=== PATIENT | female | born 1960 | race Caucasian/White ===

== ENCOUNTER → 2016-02-14 | Outpatient (CLI) | payer BC ==
[~2016-02-14] MED LIST: ACHYD1T PO; ALPR1T PO; ASPI-892 PO; ATR20T PO; BISO1TAB4 PO; CEPH-38 PO; CYCL10TA9 PO; DCS100C PO; ESTR0.9T PO; ESTR2TAB PO; GBPN300C PO; HYDR-2997 PO; HYDR-757 PO; LEVO75TA57 PO; LEVO88TA26 PO; MELO7.5T PO; NAPR-689 PO; OMEP40CA36 PO; POLY17PO6 PO; PTU50T PO
--- OUTSIDE RECORDS SUMMARY | 2016-02-14 10:25 | XMS REPORT | Continuity of Care Document ---
Author Author [facility] Organization [facility] Address Unknown Phone Unavailable Care Team Providers Care [employer] C[employer] Developer Name Role Phone SUSANA REAVES MD PCP Insurance Providers Payer Name Policy Number Subscriber Name Relationship [facility] [id number] Meagan Christopher S 18 Self / Same As Patient Advance Directives Directive Response Recorded Date/Time Advance Directives No 07/19/15 10:49am Health Care Power of Chief Technologist No 07/19/15 10:49am Organ Donor Yes 07/19/15 10:49am Resuscitation Status Full Code 07/19/15 10:49am Problems No problem information available. Medications Current Home Medications Medication Dose Units Route Directions Days/Qty Instructions Start Date Meloxicam 7.5 Mg 15 Mg Oral Daily 02/11/10 Bisoprolol Fumarate/Hctz 1 Tab 1 Tab Oral Daily 30 02/11/10 Omeprazole 40 Mg 40 Mg Oral Daily 02/11/10 Estradiol 2 Mg 2 Mg Oral Daily 12/22/12 Atorvastatin Calcium 20 Mg 20 Mg Oral Daily 12/22/12 Levothyroxine Sodium 88 Mcg 88 Mcg Oral Daily 11/12/13 Past Home Medications Medication Directions Ordered Status Estrogens,Conjugated 0.9 Mg Tablet, 0.9 Mg Oral Every Other Day 02/11/10 Discontinued Propylthiouracil 50 Mg Tab, 7.5 Mg Oral Daily 02/11/10 Discontinued Aspirin 81 Mg Tabec, 81 Mg Oral Daily 02/11/10 Discontinued Acetaminophen/Hydrocodone Bitart 1 Tab Tablet, 1 Each Oral As Needed Q4-6H as needed 02/14/10 Discontinued Alprazolam 1 Mg Tablet, 0.5 Mg Oral Daily as needed for Anxiety 12/22/12 Discontinued Levothyroxine Sodium 75 Mcg Tablet, 1 Each Oral Daily 12/22/12 Discontinued Gabapentin 300 Mg Cap, 300 Mg Oral Three Times A Day 12/22/12 Discontinued Acetaminophen/Hydrocodone Bitart 1 Tab Tablet, 1-2 Ea Oral Every 3 Hours as needed for Pain 12/28/12 Discontinued Docusate Sodium 100 Mg Cap, 100 Mg Oral Twice A Day 12/28/12 Discontinued Hydrocodone Bit/Acetaminophen 1 Each Tablet, 1 Tab Oral Every 4HRS as needed for Pain 03/12/13 Discontinued Cephalexin Monohydrate 500 Mg Capsule, 500 Mg Oral Four Times Daily 03/12/13 Discontinued Naproxen 500 Mg Tablet, 1 Tab Oral Twice A Day 11/12/13 Discontinued Cyclobenzaprine Hcl (Flexeril) 10 Mg Tablet, 1 Each Oral Twice A Day Discontinued Social History Social History Problem Response Recorded Date/Time Alcohol Use Occasionally Uses 11/12/2013 3:55pm Recreational Drug Use No 11/12/2013 3:55pm Recent Foreign Travel No 11/12/2013 3:55pm Recent Infectious Disease Exposure No 11/12/2013 3:55pm Sexually Transmitted Disease No 11/12/2013 3:55pm Hospital Discharge Instructions No hospital discharge instructions. Plan of Care Discharge Date 07/19/15 11:03am Prescriptions See Medication Section Functional Status No functional status results. Allergies, Adverse Reactions, Alerts Allergen Type Severity Reaction Status Last Updated Sulfa (Sulfonamide Antibiotics) ([id number]) Allergy Unknown RASH Active 07/19/15 Immunizations Name Given Type Date of Influenza Vaccine 11/09/12 Historical Vital Signs Acute Vital Signs Vital Response Date/Time Height (Feet) 5 feet 07/19/2015 10:49am Height (Inches) 2.00 inches 07/19/2015 10:49am Height (Calculated Centimeters) 157.151715 cm 07/19/2015 10:49am Weight (Pounds) 169 pounds 07/19/2015 10:49am Weight (Calculated Grams) 61166.111 gm 07/19/2015 10:49am Weight (Calculated Kilograms) 76.351263 kilograms 07/19/2015 10:49am Calculated BMI 30.91 07/19/2015 10:49am Results No known relevant diagnostic tests, laboratory data and/or discharge summary. Procedures No known history of procedures. Encounters Encounter Location Arrival/Admit Date Discharge/Depart Date Attending Provider Departed Clinic [facility] 07/19/15 5:54am 07/19/15 11: 03am KELLY BATISTA DO Registered Clinic [facility] 07/04/15 8:04am SUSANA REAVES MD
--- NOTE | 2016-02-14 19:28 | Diagnostic Imaging Report ---
Bilateral screening mammogram The current study was also evaluated with a Computer Aided Detection (CAD) system. Indication: Screening. No current complaints stated on the questionnaire. COMPARISON: 07/07/14. FINDINGS: The breasts are composed of heterogeneously dense parenchyma which may decrease mammographic sensitivity. There is no mass, architectural distortion or suspicious cluster of calcification seen. The left breast is overall more dense compared to the right breast which is similar to the prior exams. Allowing for technique and positional differences, no suspicious change is seen. IMPRESSION: No significant change. ACR BI-RADS Category 2: Benign findings. Result letter will be mailed to the patient. Note: At least 10% of breast cancer is not imaged by mammography. Dictated by: Dictated on workstation # [id number]
== END ==
LOC: RAD 10:22
PROVIDERS: ATTEND Obstetrics & Gynecology
DX: Z12.31 Encounter for screening mammogram for malignant neoplasm of breast (principal)

== ENCOUNTER → 2016-05-05 | Outpatient (CLI) | payer BC ==
--- NOTE | 2016-05-05 11:47 | Diagnostic Imaging Report ---
PA and lateral views of the chest Indication: Cough, chills and shortness of breath Findings: The lungs are clear. The heart size is normal. There is no effusion or pneumothorax The mediastinum and rizwana appear unremarkable. Surgical clips in the upright abdomen seen. There is mild upper lumbar spine scoliosis. Impression: No acute cardiopulmonary process. Dictated by: Dictated on workstation # [id number]
== END ==
LOC: RAD 11:30
PROVIDERS: ATTEND Family Medicine
DX: R05 Cough (principal); B59 Pneumocystosis
CPT/HCPCS: 71020

== ENCOUNTER 2018-01-28 10:28 | Outpatient (CLI) | payer BC ==
[~2018-01-28] VITALS: Ht 156.2 cm; Wt 75.7 kg
[2018-01-28 10:44] VITALS: BP 127/74
[2018-01-28] MEDS ORDERED: ESCI10TA55 PO (11:03)
[2018-01-28] MEDS ORDERED: GABA-488 PO (11:03)
[2018-01-28] MEDS ORDERED: LEVO88TA54 PO (11:03)
[2018-01-28] MEDS ORDERED: OMEP40CA36 PO (11:03)
[2018-01-28] MEDS ORDERED: SIMV20TA3 PO (11:03)
[2018-01-28] MEDS ORDERED: ESTR1TAB24 PO (11:03)
[2018-01-28] MEDS ORDERED: FAMO20TA3 PO (11:03)
[2018-01-28] MEDS ORDERED: METF-397 PO (11:03)
[2018-01-28] MEDS ORDERED: BACL10TA PO (11:03)
[2018-01-28] MEDS ORDERED: ALPR0.5T7 PO (11:03)
[2018-01-28] MEDS ORDERED: BISO1TAB8 PO (11:03)
== END 2018-01-28 10:58 | disposition home or self-care (01) ==
LOC: PREOP 10:28
PROVIDERS: ATTEND Podiatrist Foot & Ankle Surgery
DX: Z01.818 Encounter for other preprocedural examination (principal)
CPT/HCPCS: 87081

== ENCOUNTER 2018-02-05 09:29 | Day surgery (SDC) | payer BC ==
[~2018-02-05] VITALS: Ht 156.2 cm; Wt 74.4 kg
[2018-02-05 09:25] VITALS: BP 120/70
[~2018-02-05 09:29] MED LIST changes: +ALPR0.5T7 PO; +BACL10TA PO; +BISO1TAB8 PO; +ESCI10TA55 PO; +ESTR1TAB24 PO; +FAMO20TA3 PO; +GABA-488 PO; +LEVO88TA54 PO; +METF-397 PO; +SIMV20TA3 PO
[2018-02-05] MEDS ORDERED: LACTATED RINGERS 1,000 ML IV PRN ×2 (09:51→14:20)
[2018-02-05] MEDS: LACTATED RINGERS 1,000 ML IV PRN ×2 (09:56→12:55)
[2018-02-05] MEDS ORDERED: ONDANSETRON 4 MG/2 ML (SDV) Z0FRAN IV ONE (10:00)
[2018-02-05] MEDS ORDERED: FAMOTIDINE 20MG/2ML IV (PEPCID) IV ONE (10:00)
[2018-02-05] MEDS ORDERED: SCOPOLAMINE 1.5 MG (TRANSDERM-SCOP) PATCH TOP ONE (10:00)
[2018-02-05] MEDS ORDERED: CATHETER FLUSH 10 ML SYR IV PRN (10:15)
[2018-02-05] MEDS ORDERED: ONDANSETRON 4 MG/2 ML (SDV) Z0FRAN ONE (11:17)
[2018-02-05] MEDS ORDERED: proPOfol 200 MG/20 ML (DIPRIVAN) VIAL IV ONE (11:17)
[2018-02-05] MEDS ORDERED: DEXAMETHASONE 10 MG/ML (DECADRON) 1 ML VIAL ONE ×2 (11:17→11:33)
[2018-02-05] MEDS ORDERED: SEVOFLURANE (ULTANE) 15 ML INHAL SOLN ONE ×2 (11:17→13:02)
[2018-02-05] MEDS ORDERED: ROCURONIUM 10 MG/ML 5 ML SYRINGE IV ONE (11:17)
[2018-02-05] MEDS ORDERED: fentaNYL INJECTION 100 MCG/2 ML AMP ONE (11:18)
[2018-02-05] MEDS ORDERED: MIDAZOLAM 2 MG/2 ML (VERSED) VIAL ONE (11:18)
[2018-02-05] MEDS ORDERED: BUPIVACAINE 0.5% 30 ML (SENSORCAINE) VIAL ONE (11:33)
--- NOTE | 2018-02-05 11:36 | Progress Note-Pre Operative ---
Pre-Operative Progress Note H&P Reviewed The H&P was reviewed, patient examined and no changes noted. Date Seen by Provider: Feb 05, 2018 Time Seen by Provider: 11:36 Date H&P Reviewed: Feb 05, 2018 Time H&P Reviewed: 11:36 Pre-Operative Diagnosis: Hypertrophic 2nd metatarsal, 2nd Hammertoe, Plantar Plate tear, right foot MARY ZAIDI DPM Feb 05, 2018 11:36
[2018-02-05] MEDS: CLINDAMYCIN 600 MG/50 ML IVPB 50 ML IV ONE ×2 (11:45→11:50)
--- NOTE | 2018-02-05 13:15 | Progress Note-Post Operative ---
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
[2018-02-05] MEDS ORDERED: CLIN150C2 PO (13:21)
[2018-02-05] MEDS ORDERED: ACHD5005 PO (13:21)
[2018-02-05] MEDS ORDERED: ONDANSETRON 4 MG/2 ML (SDV) Z0FRAN IVP PRN (13:30)
[2018-02-05] MEDS ORDERED: morphine INJ 10 MG/ML 1ML (SYR OR VIAL) IVP ONE (13:30)
[2018-02-05] MEDS ORDERED: LACTATED RINGERS 1,000 ML IV SCH (13:47)
[2018-02-05] MEDS ORDERED: HYDROcodone/APAP 5 MG/325 MG (LORTAB) TAB PO PRN (14:00)
[2018-02-05 14:14] VITALS: BP 132/70
[2018-02-05] MEDS ORDERED: CLINDAMYCIN 600 MG/50 ML IVPB 50 ML IV ONE (14:30)
--- NOTE | 2018-02-05 14:38 | Anesthesia-General Post-Op ---
General Patient Condition Mental Status/LOC: Same as Preop Cardiovascular: Satisfactory Nausea/Vomiting: Absent Respiratory: Satisfactory Pain: Controlled Complications: Absent Post Op Complications Complications None Follow Up Care/Instructions Patient Instructions None needed. Anesthesia/Patient Condition Patient Condition Patient is doing well, no complaints, stable vital signs, no apparent adverse anesthesia problems. No complications reported per nursing. D/C home per [facility] Criteria: Yes SARAHY GALLOWAY CRNA Feb 05, 2018 14:38
[2018-02-05 14:44] VITALS: BP 128/73
[2018-02-05 15:14] VITALS: BP 131/80
--- NOTE | 2018-02-05 15:15 | Physical Therapy Progress Note ---
Therapy Progress Note Patient declined PT intervention due to practice with knee scooter and FWW prior to surgery. PT educated/reviewed with patient and spouse on FWW and knee scooter use for NWB right foot. Step review given. Patient and spouse voice understanding and have no concern at this time. No PT indicated. 1 visit ISAIAH HOFFMAN PT Feb 05, 2018 15:15
[2018-02-05 15:25] VITALS: BP 131/80
--- NOTE | 2018-02-05 20:51 | Diagnostic Imaging Report ---
INDICATION: Right foot surgery. TIME OF EXAMINATION: 01:56 p.m. FINDINGS: Two views right foot demonstrate K wires extending through the second toe. Screw seen through the distal second metatarsal. Alignment appears anatomic. IMPRESSION: Postop changes to the right foot. Dictated by: Dictated on workstation # [id number]
--- NOTE | 2018-02-06 07:16 | OPERATIVE REPORT ---
DATE OF SERVICE: 02/05/2018 SURGEON: Mona Zaidi DPM. PREOPERATIVE DIAGNOSES: 1. Hammer digit syndrome, right second. 2. Hypertrophic second metatarsal, right foot. 3. Plantar plate tear, right second metatarsophalangeal joint. POSTOPERATIVE DIAGNOSIS: 1. Hammer digit syndrome, right second. 2. Hypertrophic second metatarsal, right foot. 3. Plantar plate tear, right second metatarsophalangeal joint. PROCEDURE: 1. Reduction of hammertoe, right second digit. 2. Second metatarsal osteotomy with screw fixation, right. 3. Plantar plate repair, right second metatarsophalangeal joint. WOUND CLASS: Clean. ANESTHESIA: General. HEMOSTASIS: Pneumatic thigh tourniquet at 250 mmHg. INDICATIONS: This 57-year-old female presents complaining of painful right foot. Conservative therapy has met with unsatisfactory results and the patient is agreeable to surgical intervention after risks and complications were discussed at length. No guarantees were extended to the patient and she is willing to proceed. DESCRIPTION OF PROCEDURE: The patient was brought back to the operating table, placed in a secure supine position. A general anesthetic was then induced. A pneumatic thigh tourniquet was placed on the right lower extremity over several layers padding. Appropriate time out was performed. Right foot was then prepped and draped in normal sterile manner. The right foot was then elevated, allowed to exsanguinate after which the tourniquet was inflated to 250 mmHg. Attention was then directed to the dorsal aspect of the right second metatarsophalangeal joint where a 4 cm longitudinal linear incision was created starting the surgical neck of the second metatarsal extending to the distal interphalangeal joint area of the second toe. The incision was deepened in the same plane with great care to identify and retract all vital neurovascular structures showing the necessary blood vessels were cauterized as encountered. The incision was deepened down to the extensor tendon where a Z slide lengthening was performed. The extensor tendon was reflected proximally and the extensor owens released overlying the metatarsophalangeal joint. A dorsal capsulorrhaphy was then performed releasing the medial and lateral collateral ligaments as well. This allowed the proximal phalanx to come down into rectus alignment. The periosteum was reflected overlying the second metatarsal head area. Next, a Shelley-type osteotomy was performed with a power sagittal saw, allowing the capital fragment to translocate proximally. Utilizing the two K-wires driven from dorsal to plantar to the second metatarsal head area as well as the base of the proximal phalanx. The joint was distracted giving direct visualization of the plantar plate, which was torn just proximal to the base of the second digit. Utilizing a Newberry blade, the attachments at the proximal phalanx were released of the remaining plantar plate. Next, utilizing Arthrex plantar plate repair 0 Ethibond sutures were applied to the plantar plate mid substance x2. Next, two agricultural pilot holes were created in a cross fashion to the proximal phalanx from dorsal medial to plantar lateral and a dorsal lateral to plantar medial allowing for the sutures to be passed through these agricultural pilot holes securing the plantar plate in a more advanced anterior orientation attaching to the plantar aspect of the proximal phalanx after the area was roughened to ensure appropriate adhesion. The wound was flushed with copious amounts of normal saline. Next, attention was then directed to the Shelley osteotomy area where the K wire was removed that was used for distraction. This same hole was utilized for the 2.0 snap-off screw of 11 mm in length. The capital fragment was placed in a more proximal position than the original position of the fragment. Excellent bony apposition and fixation was appreciated at this time. The excess articular cartilage to the dorsal aspect of the second metatarsal was reduced with a rongeur followed by a power bur. The wound was flushed with copious amounts of normal saline. Attention was now directed to the proximal interphalangeal joint where sharp dissection was carried out exposing the hypertrophic head of the proximal phalanx. Next, a power sagittal saw and power bur utilized to create a peg out of the head of the proximal phalanx for the peg-in-hole arthrodesis. Utilizing a power bur hole was created to the base of the middle phalanx. Excellent apposition of the head of the proximal phalanx and base of the middle phalanx were appreciated at this time. A K-wire was placed to secure the arthrodesis site in rectus alignment. The excess K wire at the end of the toe was cut and a Jurgan Ball placed over the end of the wire. The wound was flushed with copious amounts of normal saline and closure was then performed in layers. The extensor tendon was repaired with 3-0 Vicryl. Subcutaneous tissue was repaired with 4-0 Vicryl and skin closed with 4-0 Prolene in a horizontal mattress type stitch. Postoperative injection consisted of additional 10 mL of 0.5% Marcaine injected in a local infusion to the surgical site preoperatively. She was injected with 10 mL as well of the same local anesthetic. Postoperatively, she was also injected with 10 mg of dexamethasone injected to the medial and lateral aspect of the second metatarsal head area. Postoperative dressing consisted of Betadine soaked Adaptic, sterile 4 x 4, sterile Kerlix all secured with a Coban wrap. The patient tolerated the anesthesia and procedure well and was transported from the operating room to the recovery area with vital signs stable and vascular status intact to all digits of the right foot. The patient is to follow up in my office in 10 days' period of time or sooner if necessary. She is to be partial weightbearing with heel contact only on the right lower extremity. She was given a prescription for clindamycin as well as Vicodin postoperatively. Job ID: [id number] DocumentID: [id number] Dictated Date: 02/05/2018 13:30:58 Safety Patrol Officer Date: 02/06/2018 07:15:30 Dictated By: MONA ZAIDI DPM
== END 2018-02-05 15:40 | disposition home or self-care (01) ==
LOC: SDC 09:29
PROVIDERS: ATTEND Podiatrist Foot & Ankle Surgery
DX: M20.41 Other hammer toe(s) (acquired), right foot (principal); M89.371 Hypertrophy of bone, right ankle and foot; S93.144A Subluxation of metatarsophalangeal joint of right lesser toe(s), initial encounter; I10 Essential (primary) hypertension; E11.43 Type 2 diabetes mellitus with diabetic autonomic (poly)neuropathy; E05.90 Thyrotoxicosis, unspecified without thyrotoxic crisis or storm; K21.9 Gastro-esophageal reflux disease without esophagitis; Z79.84 Long term (current) use of oral hypoglycemic drugs; Z79.899 Other long term (current) drug therapy
CPT/HCPCS: 73620; 82962

== ENCOUNTER → 2018-09-21 | Outpatient (CLI) | payer BC ==
[~2018-09-21] MED LIST changes: +ACHD5005 PO; +CLIN150C2 PO
--- NOTE | 2018-09-21 17:42 | Diagnostic Imaging Report ---
INDICATION: Routine screening. Comparison is made with prior mammograms from 02/14/2016 and 07/07/2014. 2-D and 3-D bilateral screening mammography was performed. The current study was also evaluated with a Computer Aided Detection (CAD) system. 3-D tomosynthesis was also performed and reviewed. FINDINGS: Both breasts remain heterogeneously dense, limiting the sensitivity of mammography. No mass or malignant-appearing microcalcifications are seen. There are benign calcifications in the left breast. The axillae are unremarkable. IMPRESSION: No mammographic features suspicious for malignancy are identified. ACR BI-RADS Category 2: Benign findings. Result letter will be mailed to the patient. Note: At least 10% of breast cancer is not imaged by mammography. Dictated by: Dictated on workstation # [id number]
== END ==
LOC: RAD 12:52
PROVIDERS: ATTEND Family Medicine
DX: Z12.31 Encounter for screening mammogram for malignant neoplasm of breast (principal)
CPT/HCPCS: 77067

== ENCOUNTER → 2019-10-05 | Outpatient (CLI) | payer BC ==
[~2019-10-05] MED LIST changes: +BISO-1 PO; -BISO1TAB8 PO; +OMEP40CA27 PO; +SIMV20TA26 PO; -SIMV20TA3 PO
--- NOTE | 2019-10-05 13:32 | Diagnostic Imaging Report ---
INDICATION: Routine screening. COMPARISON: 09/21/2018 and 02/14/2016. TECHNIQUE: 2D and 3D bilateral screening mammography was performed with CAD. FINDINGS: Both breasts are heterogeneously dense, limiting the sensitivity of mammography. Benign calcifications in the left breast appear stable. No mass or malignant appearing microcalcifications are seen. The axillae are unremarkable. IMPRESSION: No mammographic features suspicious for malignancy are identified. ACR BI-RADS Category 2: Benign findings. Result letter will be mailed to the patient. Note: At least 10% of breast cancer is not imaged by mammography. Dictated by: Dictated on workstation # [id number]
== END ==
LOC: RAD 11:00
PROVIDERS: ATTEND Family Medicine
DX: Z12.31 Encounter for screening mammogram for malignant neoplasm of breast (principal)
CPT/HCPCS: 77063; 77067

== ENCOUNTER 2021-05-12 09:11 | Emergency (ER) | payer BC ==
[~2021-05-12] VITALS: Ht 155 cm; Wt 77.1 kg
[~2021-05-12 09:11] MED LIST changes: +ESCI-2 PO; -ESCI10TA55 PO; -OMEP40CA27 PO; +OMEP40CA6 PO
[2021-05-12 09:37] LABS: BILIRUBIN,URINE 3+ (NEGATIVE); CLARITY,URINE CLOUDY; COLOR,URINE BROWN; GLUCOSE, URINE (UA) NEGATIVE (NEGATIVE); KETONES,URINE TRACE (NEGATIVE); LEUKOCYTE ESTERASE ,URINE 3+ (NEGATIVE); NITRITE,URINE POSITIVE (NEGATIVE); PROTEIN,URINE 3+ (NEGATIVE)
[2021-05-12] MEDS ORDERED: LACTATED RINGERS 1,000 ML IV ONE (09:45)
[2021-05-12 09:47] LABS: BACTERIA,URINE LARGE /HPF; RBC,URINE TNTC /HPF; WBC,URINE TNTC /HPF
--- NOTE | 2021-05-12 09:50 | ED GU-Female ---
General Chief Complaint: - Reproductive Stated Complaint: BLOOD IN URINE Nursing Triage Note: PT PRESENTS TO ED VIA POV FROM HOME WITH COMPLAINTS OF BLOOD IN URINE STARTING 2 DAYS AGO. PT STATES IT INITIALLY STARTED WITH SMALL BLOOD CLOTS OCCASSIONALLY WHEN SHE URINATED. PT ALSO REPROTS HAVING SOME L SIDED FLANK PAIN AND BURING WITH URINATION. PT STATES THE BLOOD IN HER URINE PROGRESSED AND THIS AM HER URINE WAS BRIGHT RED. WHEN GIVING HER URINE SPECIMEN IN THE ER HER URINE WAS DARK RED.BROWN COLOR. PT REPORTS HER BACK/FLANK PAIN SEEMED TO HAVE STOPPED AT THIS TIME. Source: patient Exam Limitations: no limitations (HUSSAIN LIM MED STUDENT) History of Present Illness Date Seen by Provider: May 12, 2021 Time Seen by Provider: 09:35 Initial Comments Mrs. Rodgers is a 61 yo female with PMH of bladder sling and pelvic repair surgery that presents today due to blood in urine and back pain. She states that this started yesterday when she would intermittently pass some blood clots when she urinated. She states that today at 3 am when she urinated there was neville red blood with dysuria and urgency. She is having pain in the L side of her back as well, rates it a 6, sharp, nonradiating pain. She states that right now in the ED her pain is not very bad. She has had no trauma or falls. She is not on a blood thinner. She denies any other symptoms, no bowel or foundry helper symptoms. She does not drink, smoke, or use drugs. (HUSSAIN LIM MED STUDENT) Allergies and Home Medications Allergies Coded Allergies: Sulfa (Sulfonamide Antibiotics) (Unverified Allergy, Unknown, RASH, 07/19/15) Patient Home Medication List Home Medication List Reviewed: Yes (SOILA DE LA O MD) Alprazolam (Alprazolam) 0.5 Mg Tablet, 0.5 MG PO DAILY, (Reported) Entered as Reported by: HARVEY WELLINGTON on 01/28/18 110 Baclofen (Baclofen) 10 Mg Tablet, 10 MG PO BID, (Reported) Entered as Reported by: HARVEY WELLINGTON on 01/28/18 1103 Bisoprolol Fumarate/Hctz (Bisoprolol-Hctz 2.5-6.25 mg Tb) 1 Each Tablet, 1 EACH PO DAILY, (Reported) Entered as Reported by: HARVEY WELLINGTON on 01/28/18 110 Cefdinir (Cefdinir) 300 Mg Capsule, 300 MG PO BID Prescribed by: SOILA GLOVER on 05/12/21 112 Clindamycin HCl (Cleocin HCl) 150 Mg Capsule, 1 CAP PO QID Prescribed by: MARY ZAIDI on 02/05/18 132 Escitalopram Oxalate (Escitalopram Oxalate) 10 Mg Tablet, 10 MG PO HS, (Reported) Entered as Reported by: HARVEY WELLINGTON on 01/28/18 110 Famotidine (Acid Rigger Up (FAMOTIDINE)) 20 Mg Tablet, 20 MG PO HS, (Reported) Entered as Reported by: HARVEY WELLINGTON on 01/28/18 110 Gabapentin (Gabapentin) 300 Mg Capsule, 300 MG PO HS, (Reported) Entered as Reported by: HARVEY WELLINGTON on 01/28/18 110 Hydrocodone Bit/Acetaminophen (Lortab 5 Mg Tablet) 1 Tab Tab, 1-2 TAB PO Q6H PRN for PAIN-MODERATE Prescribed by: MARY ZAIDI on 02/05/18 1321 Hydrocodone/Acetaminophen (Hydrocodone-Acetamin 5-325 mg) 1 Each Tablet, 1 TAB PO Q4H PRN for PAIN-BREAKTHROUGH Prescribed by: SOILA GLOVER on 05/12/21 112 Levothyroxine Sodium (Levothyroxine Sodium) 88 Mcg Tablet, 88 MCG PO DAILY, (Reported) Entered as Reported by: HARVEY WELLINGTON on 01/28/18 110 Metformin HCl (Metformin HCl) 500 Mg Tablet, 500 MG PO BID, (Reported) Entered as Reported by: HARVEY WELLINGTON on 01/28/18 110 Omeprazole (Omeprazole) 40 Mg Capsule.dr, 40 MG PO DAILY, (Reported) Entered as Reported by: HARVEY WELLINGTON on 01/28/18 110 Simvastatin (Simvastatin) 20 Mg Tablet, 20 MG PO HS, (Reported) Entered as Reported by: HARVEY WELLINGTON on 01/28/18 110 Review of Systems Review of Systems Constitutional: No chills, No fever EENTM: No hearing loss, No vision loss Respiratory: No cough, No short of breath Cardiovascular: No chest pain, No edema Gastrointestinal: No abdominal pain, No constipation, No diarrhea, No melena, No nausea, No vomiting Genitourinary: denies burning, denies discharge; dysuria, flank pain (L), hematuria, urgency : No Musculoskeletal: No joint pain, No joint swelling Skin: No lesions, No rash Psychiatric/Neurological: Denies Headache, Denies Numbness (HUSSAIN LIM [employer] STUDENT) Past Jpqxlrm-Unmarf-Yfysgg Hx Patient Social History Tobacco Use?: No Substance use?: No Alcohol Use?: No Pt feels they are or have been: No (HUSSAIN LIM [employer] STUDENT) Immunizations Up To Date First/Initial COVID19 Vaccinat: MODERNA Second COVID19 Vaccination Jose: MODERNA (HUSSAIN LIM [employer] GARETH) Seasonal Allergies Seasonal Allergies: Yes (HUSSAIN LIM [employer] GARETH) Past Medical History Surgery/Hospitalization HX: PMH: GERD, HYPOTHYROIDISM, BACK PAIN, CHOLESTEROL, HIGH CHOLESTEROL. SX: GALLBLADDER, HYST, BLADDER SLING, SHOULDER SX Surgeries: Yes (6 ROTATOR CUFF SURGERY, BLADDER SLING, ANTERIOR REPAIR,) Gallbladder, Hysterectomy, Orthopedic, Tonsillectomy Respiratory: No Cardiac: Yes Hypertension Neurological: No Reproductive Disorders: No BOOKY History: Hysterectomy Sexually Transmitted Disease: No Gastrointestinal: Yes Gastroesophageal Reflux Musculoskeletal: Yes Arthritis, Chronic Back Pain Endocrine: Yes Hypothyroidsim Cancer: Yes Skin What Type of Treatment Did You: Surgical Intervention Psychosocial: No Integumentary: No Blood Disorders: No (HUSSAIN LIM) Family Medical History Cancer 03 MOTHER 09 BROTHER Family history: Cardiovascular disease 09 BROTHER Family history: Hypertension 03 FATHER No Family History of: Family history: Coronary thrombosis Physical Exam Vital Signs Vital Signs - First Documented 05/12/21 09:33 Temp 36.3 Pulse 77 Resp 18 B/P (MAP) 145/72 (96) Pulse Ox 100 (SOILA DE LA O MD) Vital Signs Capillary Refill : Less Than 3 Seconds (HUSSAIN LIM [employer] STUDENT) Height, Weight, BMI Height: 5'1.50" Weight: 164lbs. 0.0oz. 74.629860el; 32.00 BMI Method:Stated General Appearance: WD/WN, no apparent distress HEENT: PERRL/EOMI, pharynx normal Cardiovascular: normal peripheral pulses, regular rate, rhythm, no edema, no murmur Respiratory: chest non-tender, lungs clear, normal breath sounds Gastrointestinal: normal bowel sounds, non tender, soft Back: normal inspection, no CVA tenderness, no vertebral tenderness, other (L flank mildy tender to palpation) Extremities: non-tender, no pedal edema, no calf tenderness Neurologic/Psychiatric: alert, normal mood/affect, oriented x 3 Skin: normal color, warm/dry (Connotate STUDENT) Progress/Results/Core Measures Suspected Sepsis SIRS Temperature: Pulse: 77 Respiratory Rate: 18 Blood Pressure 145 /72 Mean: 96 (Connotate STUDENT) Results/Orders Lab Results Laboratory Tests Test 05/12/21 09:22 05/12/21 09:45 Range/Units Urine Color BROWN H Urine Clarity CLOUDY Urine pH 7.0 5-9 Urine Specific [place] 1.025 H 1.016-1.022 Urine Protein 3+ H NEGATIVE Urine Glucose (UA) NEGATIVE NEGATIVE Urine Ketones TRACE H NEGATIVE Urine Nitrite POSITIVE H NEGATIVE Urine Bilirubin 3+ H NEGATIVE Urine Urobilinogen 4.0 < = 1.0 MG/DL Urine Leukocyte Esterase 3+ H NEGATIVE Urine RBC (Auto) 3+ H NEGATIVE Urine RBC TNTC H /HPF Urine WBC TNTC H /HPF Urine Crystals NONE /LPF Urine Bacteria LARGE H /HPF Urine Casts NONE /LPF Urine Mucus NEGATIVE /LPF Urine Culture Indicated YES White Blood Count 10.6 4.3-11.0 10^3/uL Red Blood Count 4.22 3.80-5.11 10^6/uL Hemoglobin 12.9 11.5-16.0 g/dL Hematocrit 39 35-52 % Mean Corpuscular Volume 92 80-99 fL Mean Corpuscular Hemoglobin 31 25-34 pg Mean Corpuscular Hemoglobin Concent 33 32-36 g/dL Red Cell Distribution Width 13.1 10.0-14.5 % Platelet Count 260 130-400 10^3/uL Mean Platelet Volume 11.9 9.0-12.2 fL Immature Granulocyte % (Auto) 0 % Neutrophils (%) (Auto) 84 H 42-75 % Lymphocytes (%) (Auto) 9 L 12-44 % Monocytes (%) (Auto) 6 0-12 % Eosinophils (%) (Auto) 0 0-10 % Basophils (%) (Auto) 0 0-10 % Neutrophils # (Auto) 8.9 H 1.8-7.8 10^3/uL Lymphocytes # (Auto) 1.0 1.0-4.0 10^3/uL Monocytes # (Auto) 0.7 0.0-1.0 10^3/uL Eosinophils # (Auto) 0.0 0.0-0.3 10^3/uL Basophils # (Auto) 0.0 0.0-0.1 10^3/uL Immature Granulocyte # (Auto) 0.0 0.0-0.1 10^3/uL Prothrombin Time 13.6 12.2-14.7 SEC INR Comment 1.0 0.8-1.4 Activated Partial Thromboplast Time 30 24-35 SEC Sodium Level 143 135-145 MMOL/L Potassium Level 3.8 3.6-5.0 MMOL/L Chloride Level 107 98-107 MMOL/L Carbon Dioxide Level 21 21-32 MMOL/L Anion Gap 15 H 5-14 MMOL/L Blood Urea Nitrogen 32 H 7-18 MG/DL Creatinine 0.78 0.60-1.30 MG/DL Estimat Glomerular Filtration Rate 85 BUN/Creatinine Ratio 41 Glucose Level 114 H 70-105 MG/DL Calcium Level 9.5 8.5-10.1 MG/DL Corrected Calcium 9.4 8.5-10.1 MG/DL Total Bilirubin 0.5 0.1-1.0 MG/DL Aspartate Amino Transf (AST/SGOT) 18 5-34 U/L Alanine Aminotransferase (ALT/SGPT) 17 0-55 U/L Alkaline Phosphatase 78 40-136 U/L C-Reactive Protein High Sensitivity 2.73 H 0.00-0.50 MG/DL Total Protein 6.8 6.4-8.2 GM/DL Albumin 4.1 3.2-4.5 GM/DL (SOILA DE LA O MD) My Orders Orders - SOILA DE LA O MD Ua Culture If Indicated (05/12/21 09:14) Cbc With Automated Diff (05/12/21 09:43) Comprehensive Metabolic Panel (05/12/21 09:43) Hs C Reactive Protein (05/12/21 09:43) Protime With Inr (05/12/21 09:43) Partial Thromboplastin Time (05/12/21 09:43) Ed Iv/Invasive Line Start (05/12/21 09:43) Lactated Ringers (Lr 1000 Ml Iv Solution (05/12/21 09:45) Urine Culture (05/12/21 09:22) Ct Abdomen/Pelvis W (05/12/21 09:57) Iohexol Injection (Omnipaque 350 Mg/Ml 1 (05/12/21 10:45) Received Contrast (Hold Metformin- Contr (05/12/21 10:45) Ns (Ivpb) (Sodium Chloride 0.9% Ivpb Bag (05/12/21 10:45) Ceftriaxone 1 Gm Pre-Mix (Rocephin 1 Gm (05/12/21 11:01) Ketorolac Injection (Toradol Injection) (05/12/21 11:30) (SOILA DE LA O MD) Medications Given in ED Current Medications Medications Dose Ordered Sig/Jairo Route Start Time Stop Time Status Last Admin Dose Admin Iohexol 100 ml ONCE ONCE IV 05/12/21 10:45 05/12/21 10:46 DC 05/12/21 10:36 97 ML Ketorolac Tromethamine 15 mg ONCE ONCE IVP 05/12/21 11:30 05/12/21 11:31 DC 05/12/21 11:31 15 MG Lactated Ringer's 1,000 ml @ 0 mls/hr Q0M ONCE IV 05/12/21 09:45 05/12/21 09:46 DC 05/12/21 09:48 0 MLS/HR Sodium Chloride 100 ml ONCE ONCE IV 05/12/21 10:45 05/12/21 10:46 DC 05/12/21 10:36 80 ML (SOILA DE LA O MD) Vital Signs/I&O 05/12/21 05/12/21 09:33 11:38 Temp 36.3 Pulse 77 72 Resp 18 18 B/P (MAP) 145/72 (96) 135/66 Pulse Ox 100 98 (SOILA DE LA O MD) Vital Signs/I&O Capillary Refill : Less Than 3 Seconds (HUSSAIN LIM MED STUDENT) Blood Pressure Mean: 96 Progress Note : Progress Note Meagan was hydrated with IV fluids during her work-up. Urinalysis revealed significant pyuria and hematuria. CT scan was obtained to rule out infection associated with ureteral stone versus pyelonephritis. CT revealed dilated ureters bilaterally without evidence of obstructing stone. This likely represents pyelonephritis. She was given Toradol for pain and Rocephin for the pyelonephritis. See discharge instructions for further discussion. (SOILA DE LA O MD) Diagnostic Imaging Diagonstic Imaging: CT Plain Films/CT/US/NM/MRI: abdomen, pelvis Comments CT scan viewed by me and report reviewed. See report below: NAME: MEAGAN ROD[facility]ERS [facility] REC#: [id number] PT STATUS: REG ER : 1960 PHYSICIAN: SOILA DE LA O MD ADMIT DATE: 05/12/21/ER Signed Date of Exam:05/12/21 CT ABDOMEN/PELVIS W INDICATION: Blood in urine for 2 days. Left flank pain and burning sensation with urination. EXAMINATION: CT abdomen/pelvis with contrast on 05/12/2021. COMPARISON: 11/20/2015. FINDINGS: Lung base is clear. Several hypodensities are seen throughout the liver, stable from previous imaging. Larger areas are likely cysts. Others are too small for characterization. There is evidence of previous cholecystectomy. Adrenal glands, spleen, and pancreas are unremarkable. Diffuse atrophy of the pancreas is noted. There is a tiny hiatal hernia. 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 Tiny cystic lesions, too small to characterize, are noted on the left. There is mild bilateral hydronephrosis. Ureters are prominent bilaterally with enhancement of the wall of the ureters, left worse than right, likely due to pyelonephritis. Correlate with symptoms. No obstructing stone is appreciated on either side. Enhancement of the kidneys, however, is normal. There is diffuse atherosclerotic disease. There is degenerative change and post operative findings within the lumbar spine. There is no acute osseous abnormality. IMPRESSION: Mild bilateral hydroureteronephrosis with mild enhancement of the wall of the ureters bilaterally suggesting developing pyelonephritis. Correlate with patient's symptoms. No obstructing stones are appreciated. Otherwise, incidental findings as discussed above. Dictated by: Dictated on workstation # [id number] Dict: 05/12/21 1050 Trans: 05/12/21 1057 [id number] Interpreted by: SHIRA GEORGE MD Electronically signed by: SHIRA GEORGE MD 05/12/21 105 (SOILA DE LA O MD) Departure Impression Primary Impression: Pyelonephritis Additional Impression: Hematuria Qualified Codes: R31.0 - Gross hematuria Disposition: HOME, SELF-CARE Condition: Improved Departure-Patient Inst. Decision time for Depature: 11:17 (SOILA DE LA O MD) Referrals: NO,LOCAL PHYSICIAN (PCP/Family) Primary Care Physician Patient Instructions: Blood in Urine (Hematuria), Adult ED, Kidney Infection Add. Discharge Instructions: Drink plenty of clear liquids to stay well-hydrated and urinate often. Use Tylenol (acetaminophen) up to 1000 mg every 6 hours as needed for primary pain control. You may sparingly add some ibuprofen up to 400 mg 3 or 4 times a day if necessary to aid with pain control. For more severe pain, use hydrocodone as prescribed. Hydrocodone does contain 325 mg of Tylenol (acetaminophen). Do not exceed more than 1000 mg of acetaminophen in a 6-hour period of time. Follow-up with your primary care provider on Thursday as previously instructed. Consider having your primary care provider repeat a urinalysis at that appointment to ensure the blood in your urine clears. Also, call your primary care provider or the emergency room on Thursday afternoon to review urine culture results. This is important to ensure the antibiotic you are taking is appropriate for the type of infection shown on the culture. Call with questions or concerns. Return to the ER if you have notable worsening of condition or development of new significant symptoms such as fever, vomiting, escalating pain despite treatment, etc. All discharge instructions reviewed with patient and/or family. Voiced understanding. Scripts Hydrocodone/Acetaminophen (Hydrocodone-Acetamin 5-325 mg) 1 Each Tablet 1 TAB PO Q4H PRN for PAIN-BREAKTHROUGH, #5 TAB Prov: SOILA DE LA O MD 05/12/21 Cefdinir (Cefdinir) 300 Mg Capsule 300 MG PO BID, #20 CAP Prov: SOILA DE LA O MD 05/12/21 Medical Student Attestation and Attending Note: I have personally interviewed and examined this patient along with Hussain Lim, MS 4. I have reviewed student documentation including history, physical, and assessments. I agree with the documentation except where otherwise noted. Exam: General: Alert, oriented, no acute distress, well developed HEENT: Normocephalic and atraumatic Heart: Regular rate and rhythm without murmur Lungs: Clear to auscultation bilaterally with normal effort Abdomen: Soft, mild generalized tenderness with tenderness more intense in the lower quadrant, nondistended, normal bowel sounds Neuropsych: Alert, oriented, no focal deficits Skin: Warm and dry without rashes (SOILA DE LA O MD) Copy Copies To 1: LAVON WALTON MD, DEREK MED STUDENT May 12, 2021 09:50 SOILA DE LA O MD May 12, 2021 11:22
[2021-05-12 09:52] LABS: BASOPHILS % (AUTO) 0 % (0-10); EOSINOPHILS % (AUTO) 0 % (0-10); HEMATOCRIT 39 % (35-52); HEMOGLOBIN 12.9 g/dL (11.5-16.0); LYMPHOCYTES % (AUTO) 9 % (12-44); MEAN CORPUSCULAR HEMOGLOBIN 31 pg (25-34); MEAN CORPUSCULAR HGB CONC 33 g/dL (32-36); MEAN CORPUSCULAR VOLUME 92 fL (80-99); MEAN PLATELET VOLUME 11.9 fL (9.0-12.2); MONOCYTES # (AUTO) 0.7 10^3/uL (0.0-1.0); MONOCYTES % (AUTO) 6 % (0-12); NEUTROPHILS # (AUTO) 8.9 10^3/uL (1.8-7.8); NEUTROPHILS % (AUTO) 84 % (42-75); PLATELET COUNT 260 10^3/uL (130-400); WHITE BLOOD COUNT 10.6 10^3/uL (4.3-11.0)
[2021-05-12 10:07] LABS: ALBUMIN 4.1 GM/DL (3.2-4.5); POTASSIUM 3.8 MMOL/L (3.6-5.0)
[2021-05-12 10:08] LABS: CALCIUM 9.5 MG/DL (8.5-10.1)
[2021-05-12 10:10] LABS: PROTHROMBIN TIME PATIENT 13.6 SEC (12.2-14.7); TOTAL PROTEIN 6.8 GM/DL (6.4-8.2)
[2021-05-12 10:11] LABS: BILIRUBIN,TOTAL 0.5 MG/DL (0.1-1.0)
[2021-05-12 10:13] LABS: CREATININE SERUM 0.78 MG/DL (0.60-1.30)
[2021-05-12] MEDS ORDERED: HOLD METFORMIN - RECEIVED CONTRAST 20 ML VIAL IV SCH (10:45)
[2021-05-12] MEDS ORDERED: NS 100 ML (IVPB) BAG IV ONE (10:45)
[2021-05-12] MEDS ORDERED: IOHEXOL 350 MG/ML 100 ML (OMNIPAQUE 350) VIAL IV ONE (10:45)
--- NOTE | 2021-05-12 10:57 | Diagnostic Imaging Report ---
INDICATION: Blood in urine for 2 days. Left flank pain and burning sensation with urination. EXAMINATION: CT abdomen/pelvis with contrast on 05/12/2021. COMPARISON: 11/20/2015. FINDINGS: Lung base is clear. Several hypodensities are seen throughout the liver, stable from previous imaging. Larger areas are likely cysts. Others are too small for characterization. There is evidence of previous cholecystectomy. Adrenal glands, spleen, and pancreas are unremarkable. Diffuse atrophy of the pancreas is noted. There is a tiny hiatal hernia. 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 Tiny cystic lesions, too small to characterize, are noted on the left. There is mild bilateral hydronephrosis. Ureters are prominent bilaterally with enhancement of the wall of the ureters, left worse than right, likely due to pyelonephritis. Correlate with symptoms. No obstructing stone is appreciated on either side. Enhancement of the kidneys, however, is normal. There is diffuse atherosclerotic disease. There is degenerative change and post operative findings within the lumbar spine. There is no acute osseous abnormality. IMPRESSION: Mild bilateral hydroureteronephrosis with mild enhancement of the wall of the ureters bilaterally suggesting developing pyelonephritis. Correlate with patient's symptoms. No obstructing stones are appreciated. Otherwise, incidental findings as discussed above. Dictated by: Dictated on workstation # [id number]
[2021-05-12] MEDS ORDERED: cefTRIAXone 1 GM PRE-MIX 50 ML IV STA (11:01)
[2021-05-12] MEDS ORDERED: ACHD5005 PO (11:22)
[2021-05-12] MEDS ORDERED: CEFD300C3 PO (11:22)
[2021-05-12] MEDS ORDERED: KETOROLAC 30 MG/ML VIAL IVP ONE (11:30)
[2021-05-12 11:38] VITALS: BP 135/66
== END 2021-05-12 11:38 | disposition home or self-care (01) ==
LOC: EDUNIT# 09:11 → ER 09:12
DX: N12 Tubulo-interstitial nephritis, not specified as acute or chronic (principal); R31.9 Hematuria, unspecified
CPT/HCPCS: 36415; 74177; 80053; 81000; 85025; 85610; 85730; 86141; 87077; 87088; 87186

== ENCOUNTER 2022-07-08 05:40 | Outpatient (CLI) | payer BC ==
[~2022-07-08] VITALS: Ht 157.5 cm; Wt 75.9 kg
[~2022-07-08 05:40] MED LIST changes: +CEFD300C3 PO
[2022-07-09] MEDS ORDERED: ESOM40CA52 PO (10:51)
[2022-07-09] MEDS ORDERED: DESV100T PO (10:51)
[2022-07-09] MEDS ORDERED: [UNRECOGNIZED DRUG - CODE] PO (10:52)
[2022-07-09] MEDS ORDERED: TOPI100T11 PO (10:52)
[2022-07-22] MEDS ORDERED: LIDO700A45 TP (10:53)
[2022-07-22] MEDS ORDERED: OXYC5CAP18 PO (10:53)
[2022-07-22] MEDS ORDERED: OXYC5TAB PO (11:10)
== END 2022-07-22 12:31 | disposition home or self-care (01) ==
LOC: PREOP 05:40
PROVIDERS: ATTEND Specialist
DX: Z01.818 Encounter for other preprocedural examination (principal)

== ENCOUNTER 2022-07-11 09:31 | Day surgery (SDC) | payer BC ==
[~2022-07-11] VITALS: Ht 157.5 cm; Wt 75.9 kg
[~2022-07-11 09:31] MED LIST changes: +DESV100T PO; +ESOM40CA52 PO; +TOPI100T11 PO; +[UNRECOGNIZED DRUG - CODE] PO
[2022-07-11] MEDS: TETRACAINE 0.5% OPHTH SOLN 4 ML BTL (SINGLE DOSE ONLY) OU PRN ×4 (09:50→10:08)
[2022-07-11] MEDS: TROPICAMIDE 1% OPH SOLN (MYDRIACYL) 15 ML BTL OP SCH ×3 (09:57→10:08)
[2022-07-11] MEDS: PHENYLEPHRINE 10% OPHTH (NEO-SYN) 5 ML BTL OU SCH ×3 (09:57→10:08)
[2022-07-11] MEDS ORDERED: TIMOLOL 0.5% (CATARACTS) 0.3 ML BTL OU PRN (10:00)
[2022-07-11] MEDS ORDERED: MOXIFLOXACIN OPHTH SOLN 5 MG/ML 0.3 ML SYRINGE OP ONE (10:00)
[2022-07-11] MEDS ORDERED: POVIDONE (BETADINE) OPHTH SOLN 5% 30 ML OP ONE (10:00)
[2022-07-11 10:11] VITALS: BP 124/66
[2022-07-11] MEDS ORDERED: MIDAZOLAM 2 MG/2 ML (VERSED) VIAL ONE (10:49)
--- NOTE | 2022-07-11 11:00 | Ophthalmologist Pre-Op Note ---
Pre-Operative Progress Note H&P Reviewed The H&P was reviewed, patient examined and no changes noted. Date H&P Reviewed: Jul 11, 2022 Time H&P Reviewed: 11:00 Pre-Op Dx Cataract, Right Eye DANIKA AMEZCUA MD Jul 11, 2022 11:00
--- NOTE | 2022-07-11 11:20 | Ophthalmology Operative Report ---
Cataract removal/placement IOL PREOPERATIVE DIAGNOSIS: Cataract Right Eye POSTOPERATIVE DIAGNOSIS: Cataract Right Eye PROCEDURE: Cataract removal and placement of posterior chamber implant, right eye SURGEON: Michael Amezcua ANESTHESIA: Topical with sedation COMPLICATIONS: None ESTIMATED BLOOD LOSS: Minimal DESCRIPTION OF PROCEDURE: After proper informed consent was obtained, the patient, a 62 female, was taken to the Operating Room and the right eye was anesthetized with tetracaine. The right eye was then prepped and draped in the usual manner. A wire lid speculum was placed. A paracentesis was made at the left hand position. Preservative free lidocaine was injected into the anterior chamber followed by viscoelastic. A clear corneal incision was made in the temporal position. A capsulorrhexis was preformed and the central nuclear and cortical material were removed. The posterior capsule was polished and Sunday 18.5 AU00T0 IOL was placed into the capsular bag. The residual viscoelastic was aspirated and balanced saline solution was injected into the anterior chamber. Moxifloxacin was injected into the anterior chamber. The wound was checked and found to be water tight. The patient tolerated the procedure well without complications. MICHAEL AMEZCUA MD Jul 11, 2022 11:20
[2022-07-11 11:28] VITALS: BP 129/71
--- NOTE | 2022-07-11 13:35 | Anesthesia-General Post-Op ---
MAC Patient Condition Mental Status/LOC: Same as Preop Cardiovascular: Satisfactory Nausea/Vomiting: Absent Respiratory: Satisfactory Pain: Controlled Complications: Absent Post Op Complications Complications None Follow Up Care/Instructions Patient Instructions None needed. Anesthesiology Discharge Order Discharge Order Patient is doing well, no complaints, stable vital signs, no apparent adverse anesthesia problems. No complications reported per nursing. PANDA RAE CRNA Jul 11, 2022 13:35
== END 2022-07-11 11:28 | disposition home or self-care (01) ==
LOC: SDC 09:31
PROVIDERS: ATTEND Specialist
DX: E11.36 Type 2 diabetes mellitus with diabetic cataract (principal); H25.9 Unspecified age-related cataract; Z79.84 Long term (current) use of oral hypoglycemic drugs
CPT/HCPCS: 66984; V2632

== ENCOUNTER 2022-07-22 08:32 | Emergency (ER) | payer BC ==
[~2022-07-22] VITALS: Ht 157.4 cm; Wt 75.0 kg
--- NOTE | 2022-07-22 09:29 | ED Fall/Injury ---
General Chief Complaint: Trauma-Non Activation Stated Complaint: FALL | RT SIDE RIB INJ Nursing Triage Note: became off balance last night while reaching toward the right and fell hitting her lower right rib area and her right upper thigh. states she did hit her head however she denies LOC, headache, nausea, vomiting or blurry vision. rates pain 7/10 on pain scale. Source: patient Exam Limitations: no limitations History of Present Illness Date Seen by Provider: Jul 22, 2022 Time Seen by Provider: 08:34 Initial Comments 62-year-old female coming in after she was reaching for something, a gate fell causing her to fall landing on her right side last night. Immediately had right thigh pain, now this morning with right-sided rib pain. Thigh just feels more like a bruise and she has been walking on it. Did not pass out, remembers all events, no nausea or vomiting, no neck or back pain, has been ambulatory since the incident. Does not take blood thinners. Took naproxen this morning which did help somewhat with the pain. Allergies and Home Medications Allergies Coded Allergies: Penicillins (Verified Allergy, Unknown, RASH, 07/09/22) Sulfa (Sulfonamide Antibiotics) (Unverified Allergy, Unknown, RASH, 07/19/15) sulfamethoxazole (Verified Allergy, Unknown, RASH, 07/09/22) trimethoprim (Verified Allergy, Unknown, RASH, 07/09/22) Patient Home Medication List Home Medication List Reviewed: Yes Alprazolam (Alprazolam) 0.5 Mg Tablet, 0.5 MG PO DAILY, (Reported) Entered as Reported by: HARVEY WELLINGTON on 01/28/181102 Baclofen (Baclofen) 10 Mg Tablet, 10 MG PO BID, (Reported) Entered as Reported by: HARVEY WELLINGTON on 01/28/18 110 Bisoprolol Fumarate/Hctz (Bisoprolol-Hctz 2.5-6.25 mg Tb) 1 Each Tablet, 1 EACH PO DAILY, (Reported) Entered as Reported by: HARVEY WELLINGTON on 01/28/18 110 Clindamycin HCl (Cleocin HCl) 150 Mg Capsule, 1 CAP PO QID Prescribed by: MARY ZAIDI on 02/05/18 1321 Desvenlafaxine Succinate (Pristiq ER) 100 Mg Tab.er.24h, 100 MG PO D, (Reported) Entered as Reported by: KIANA PAYAN on 07/09/22 105 Esomeprazole Magnesium (Esomeprazole Magnesium) 40 Mg Capsule.dr, 40 MG PO DAILY, (Reported) Entered as Reported by: KIANA PAYAN on 07/09/22 105 Famotidine (Acid Entry Level Civil Engineer (FAMOTIDINE)) 20 Mg Tablet, 20 MG PO HS, (Reported) Entered as Reported by: HARVEY WELLINGTON on 01/28/18 110 Gabapentin (Gabapentin) 300 Mg Capsule, 300 MG PO HS, (Reported) Entered as Reported by: HARVEY WELLINGTON on 01/28/18 110 Levothyroxine Sodium (Levothyroxine Sodium) 88 Mcg Tablet, 88 MCG PO DAILY, (Reported) Entered as Reported by: HARVEY WELLINGTON on 01/28/18 110 Lidocaine (Lidocaine 5% Patch) 5 % Adh..patch, 1 EACH TP Q12H PRN for Ne uropathic pain Prescribed by: BRANDAN CROWDER on 07/22/22 105 Metformin HCl (Metformin HCl) 500 Mg Tablet, 500 MG PO BID, (Reported) Entered as Reported by: HARVEY WELLINGTON on 01/28/18 110 Naproxen Sodium (Naproxen Sodium) 275 Mg Tablet, 2 EA PO DAILY, (Reported) Entered as Reported by: KIANA PAYAN on 07/09/22 105 Oxycodone HCl (Oxycodone HCl) 5 Mg Capsule, 5 MG PO Q6H PRN for PAIN-MODERATE TO SEVERE Prescribed by: BRANDAN CROWDER on 07/22/22 105 Simvastatin (Simvastatin) 20 Mg Tablet, 20 MG PO HS, (Reported) Entered as Reported by: HARVEY WELLINGTON on 01/28/18 110 Topiramate (Topiramate) 100 Mg Tablet, 100 MG PO, (Reported) Entered as Reported by: KIANA PAYAN on 07/09/22 105 Review of Systems Review of Systems Constitutional: No fever Eyes: No Symptoms Reported Ears, Nose, Mouth, Throat: no symptoms reported Respiratory: no symptoms reported Cardiovascular: no symptoms reported Gastrointestinal: no symptoms reported Genitourinary: no symptoms reported Musculoskeletal: see HPI Skin: no symptoms reported Psychiatric/Neurological: No Symptoms Reported Past Vcaqgyc-Bdjysl-Xzpeof Hx Immunizations Up To Date First/Initial COVID19 Vaccinat: MODERNA Second COVID19 Vaccination Jose: MODERNA Seasonal Allergies Seasonal Allergies: Yes Past Medical History Surgery/Hospitalization HX: PMH: GERD, HYPOTHYROIDISM, BACK PAIN, CHOLESTEROL, HIGH CHOLESTEROL. 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 Sexually Transmitted Disease: No Gastrointestinal: Yes Gastroesophageal Reflux Musculoskeletal: Yes Arthritis, Chronic Back Pain Endocrine: Yes Hypothyroidsim Cancer: Yes Skin What Type of Treatment Did You: Surgical Intervention Psychosocial: No Integumentary: No Blood Disorders: No Family Medical History Cancer 03 MOTHER 09 BROTHER Family history: Cardiovascular disease 09 BROTHER Family history: Hypertension 03 FATHER No Family History of: Family history: Coronary thrombosis Physical Exam Vital Signs Vital Signs - First Documented 07/22/22 09:10 Temp 36.8 Pulse 70 Resp 18 B/P (MAP) 148/69 (95) Pulse Ox 100 O2 Delivery Room Air Capillary Refill : Height, Weight, BMI Height: 5'1.50" Weight: 164lbs. 0.0oz. 74.425627ss; 30.00 BMI Method:Stated General Appearance: WD/WN, no apparent distress HEENT: PERRL/EOMI, normal ENT inspection, pharynx normal Neck: non-tender, full range of motion, supple, normal inspection Cardiovascular: regular rate, rhythm, no edema, no murmur Respiratory: lungs clear, normal breath sounds, no respiratory distress, no accessory muscle use, other (Right-sided chest wall pain) Gastrointestinal: normal bowel sounds, non tender, soft; No guarding, No rebound Back: normal inspection, no CVA tenderness, no vertebral tenderness Extremities: normal range of motion, no pedal edema, no calf tenderness, normal capillary refill, other (Bruising to the lateral right thigh with no bony tenderness) Neurologic/Psychiatric: no motor/sensory deficits, alert, normal mood/affect, oriented x 3 Skin: normal color, warm/dry [place] Coma Score Best Eye Response: (4) Open Spontaneously Best Verbal Response: (5) Oriented Best Motor Response: (6) Obeys Commands Progress/Results/Core Measures Results/Orders My Orders Orders - BRANDAN CROWDER MD Ribs/Unilateral With Chest (07/22/22 09:25) Oxycodone Immediate Rel Tablet (Oxyir Ta (07/22/22 09:30) Acetaminophen Tablet (Tylenol Tablet) (07/22/22 09:30) Ondansetron Oral Dissolve Tab (Zofran (07/22/22 09:30) Medications Given in ED Current Medications Medications Dose Ordered Sig/Jairo Route Start Time Stop Time Status Last Admin Dose Admin Acetaminophen 1,000 mg ONCE ONCE PO 07/22/22 09:30 07/22/22 09:31 DC 07/22/22 10:42 1,000 MG Ondansetron HCl 4 mg ONCE ONCE PO 07/22/22 09:30 07/22/22 09:31 DC 07/22/22 10:42 4 MG Oxycodone HCl 2.5 mg ONCE ONCE PO 07/22/22 09:30 07/22/22 09:31 DC 07/22/22 10:44 2.5 MG Vital Signs/I&O 07/22/22 09:10 Temp 36.8 Pulse 70 Resp 18 B/P (MAP) 148/69 (95) Pulse Ox 100 O2 Delivery Room Air Blood Pressure Mean: 95 Progress Progress Note : Progress Note 62-year-old female presenting after mechanical fall. ABCs were intact and vitals were stable on presentation. Physical exam with right-sided rib pain and a bruise to her right lateral thigh with no bony tenderness there. She is ambulatory without issue. Chest x-ray and rib series ordered and interpreted by me showing no obvious fracture or pneumothorax. She was given oxycodone here for pain control. She is [place] head and cervical spine rule negative and I do not believe needs a CT of her head or C-spine at this time. I will write a short prescription for oxycodone for her rib contusions. I believe she is otherwise stable for discharge with outpatient follow-up. She was sent home with strict return precautions. Diagnostic Imaging Diagonstic Imaging: Xray (chest and right sided rib series) Comments [facility], [place] NAME: MEAGAN ORDGERS [facility] REC#: [id number] PT STATUS: REG ER : 1960 PHYSICIAN: BRANDAN CROWDER MD ADMIT DATE: 07/22/22/ER Draft Date of Exam:07/22/22 RIBS/UNILATERAL WITH CHEST EXAM: Chest and rib radiographs EXAM DATE: 07/22/2022. COMPARISON: 05/05/2016 HISTORY: Right-sided chest pain after fall TECHNIQUE: Single view of the chest with 3 additional views of the right ribs. FINDINGS: Heart size and pulmonary vasculature normal. Lungs are clear without consolidation, pleural effusion, or pneumothorax. No acute or displaced rib fracture seen. Surgical degenerative changes of the spine. IMPRESSION: 1. No acute abnormality in the chest. 2. No acute or displaced right rib fracture. Dictated on workstation # [id number] Dict: 07/22/22 1031 Trans: 07/22/22 1037 CV [id number] Interpreted by: EJ MITCHELL DO Electronically signed by: Departure Impression Primary Impression: Fall Qualified Codes: W19.XXXA - Unspecified fall, initial encounter Additional Impression: Rib contusion Qualified Codes: S20.211A - Contusion of right front wall of thorax, initial encounter Disposition: 01 HOME, SELF-CARE Condition: Stable Departure-Patient Inst. Decision time for Depature: 10:55 Referrals: LAVON WALTON MD (PCP/Family) Primary Care Physician Patient Instructions: Rib Fracture or Bruised Rib ED Add. Discharge Instructions: Fortunately it does not look like you have any displaced rib fractures on that right side. So it is possible there are very subtle small fractures. We recommend continuing the naproxen, we will send some lidocaine patches as well as oxycodone for extreme cases. We would expect the pain to get better in the next couple of weeks. Please follow-up with your regular doctor if you are not seeing improvement. Scripts Oxycodone HCl (Oxycodone HCl) 5 Mg Tablet 5 MG PO Q6H PRN for PAIN-MODERATE TO SEVERE for 3 Days, #12 TAB Prov: BRANDAN CROWDER MD 07/22/22 Lidocaine (Lidocaine 5% Patch) 5 % Adh..patch 1 EACH TP Q12H PRN for Neuropathic pain MDD 2 for 14 Days, #28 PATCH 2 patches max for 12 hours, then 12 hours patch-free period. Prov: BRANDAN CROWDER MD 07/22/22 Work/School Note: Work Release Form Date Seen in the Emergency Department: Jul 22, 2022 Return to Work: Jul 23, 2022 Restrictions: No Restrictions BRANDAN CROWDER MD Jul 22, 2022 09:29
[2022-07-22] MEDS ORDERED: ACETAMINOPHEN 500 MG TAB (TYLENOL) PO ONE (09:30)
[2022-07-22] MEDS ORDERED: ONDANSETRON 4 MG (ZOFRAN) ORAL DISSOLVE TAB PO ONE (09:30)
--- NOTE | 2022-07-22 10:37 | Diagnostic Imaging Report ---
EXAM: Chest and rib radiographs EXAM DATE: 07/22/2022. COMPARISON: 05/05/2016 HISTORY: Right-sided chest pain after fall TECHNIQUE: Single view of the chest with 3 additional views of the right ribs. FINDINGS: Heart size and pulmonary vasculature normal. Lungs are clear without consolidation, pleural effusion, or pneumothorax. No acute or displaced rib fracture seen. Surgical degenerative changes of the spine. IMPRESSION: 1. No acute abnormality in the chest. 2. No acute or displaced right rib fracture. Dictated by: Dictated on workstation # [id number]
[2022-07-22] MEDS ORDERED: OXYC5CAP18 PO (10:53)
[2022-07-22] MEDS ORDERED: LIDO700A45 TP (10:53)
[2022-07-22 10:58] VITALS: BP 125/58
[2022-07-22] MEDS ORDERED: OXYC5TAB PO (11:10)
== END 2022-07-22 10:58 | disposition home or self-care (01) ==
LOC: EDUNIT# 08:32 → ER 08:34
DX: S20.211A Contusion of right front wall of thorax, initial encounter (principal); S70.11XA Contusion of right thigh, initial encounter; W18.30XA Fall on same level, unspecified, initial encounter; W22.8XXA Striking against or struck by other objects, initial encounter
CPT/HCPCS: 71101

== ENCOUNTER → 2022-07-23 | Outpatient (CLI) | payer BC ==
[~2022-07-23] MED LIST changes: +LIDO700A45 TP; +OXYC5CAP18 PO; +OXYC5TAB PO
== END | disposition home or self-care (01) ==
LOC: PREOP 05:28
PROVIDERS: ATTEND Specialist
DX: Z01.818 Encounter for other preprocedural examination (principal)

== ENCOUNTER 2022-07-25 10:12 | Day surgery (SDC) | payer BC ==
[~2022-07-25] VITALS: Ht 157 cm; Wt 75.0 kg
[2022-07-25] MEDS ORDERED: POVIDONE (BETADINE) OPHTH SOLN 5% 30 ML OP ONE (10:15)
[2022-07-25] MEDS ORDERED: TIMOLOL 0.5% (CATARACTS) 0.3 ML BTL OU PRN (10:15)
[2022-07-25] MEDS ORDERED: MOXIFLOXACIN OPHTH SOLN 5 MG/ML 0.3 ML SYRINGE OP ONE (10:15)
[2022-07-25] MEDS: TETRACAINE 0.5% OPHTH SOLN 4 ML BTL (SINGLE DOSE ONLY) OU PRN ×4 (10:19→10:35)
[2022-07-25] MEDS: TROPICAMIDE 1% OPH SOLN (MYDRIACYL) 15 ML BTL OP SCH ×3 (10:25→10:35)
[2022-07-25] MEDS: PHENYLEPHRINE 10% OPHTH (NEO-SYN) 5 ML BTL OU SCH ×3 (10:25→10:35)
[2022-07-25 10:33] VITALS: BP 149/76
--- NOTE | 2022-07-25 11:28 | Ophthalmologist Pre-Op Note ---
Pre-Operative Progress Note H&P Reviewed The H&P was reviewed, patient examined and no changes noted. Date H&P Reviewed: Jul 25, 2022 Time H&P Reviewed: 11:28 Pre-Op Dx Cataract, Left Eye DANIKA AMEZCUA MD Jul 25, 2022 11:28
[2022-07-25] MEDS ORDERED: MIDAZOLAM 2 MG/2 ML (VERSED) VIAL ONE (11:32)
--- NOTE | 2022-07-25 11:51 | Ophthalmology Operative Report ---
Cataract removal/placement IOL PREOPERATIVE DIAGNOSIS: Cataract Left Eye POSTOPERATIVE DIAGNOSIS: Cataract Left Eye PROCEDURE: Cataract removal and placement of posterior chamber implant, left eye SURGEON: Michael Amezcua ANESTHESIA: Topical with sedation COMPLICATIONS: None ESTIMATED BLOOD LOSS: Minimal DESCRIPTION OF PROCEDURE: After proper informed consent was obtained, the patient, a 62 female, was taken to the Operating Room and the left eye was anesthetized with tetracaine. The left eye was then prepped and draped in the usual manner. A wire lid speculum was placed. A paracentesis was made at the left hand position. Preservative free lidocaine was injected into the anterior chamber followed by viscoelastic. A clear corneal incision was made in the temporal position. A capsulorrhexis was preformed and the central nuclear and cortical material were removed. The posterior capsule was polished and an Sunday 17.0 AU00T0 was placed into the capsular bag. The residual viscoelastic was aspirated and balanced saline solution was injected into the anterior chamber. Moxifloxacin was injected into the anterior chamber. The wound was checked and found to be water tight. The patient tolerated the procedure well without complications. MICHAEL AMEZCUA MD Jul 25, 2022 11:51
[2022-07-25 11:54] VITALS: BP 145/88
--- NOTE | 2022-07-25 13:47 | Anesthesia-General Post-Op ---
MAC Patient Condition Mental Status/LOC: Same as Preop Cardiovascular: Satisfactory Nausea/Vomiting: Absent Respiratory: Satisfactory Pain: Controlled Complications: Absent Post Op Complications Complications None Follow Up Care/Instructions Patient Instructions None needed. Anesthesiology Discharge Order Discharge Order Patient was doing well after the procedure with no complaints, stable vital signs, no apparent adverse anesthesia problems. No complications reported per nursing. JOSEFINA MATTHEWS 16, 2023 13:46
== END 2022-07-25 11:58 | disposition home or self-care (01) ==
LOC: SDC 10:12
PROVIDERS: ATTEND Specialist
DX: H25.9 Unspecified age-related cataract (principal)
CPT/HCPCS: 66984; V2632